=== PATIENT | female | born 1985 | race Caucasian/White ===

== ENCOUNTER 2019-04-30 11:12 | Inpatient (IN) | payer OTHER ==
[2019-04-30 12:23] LABS: RUPTURE FETAL MEMBRANES POSITIVE (NEGATIVE)
[2019-04-30] MEDS ORDERED: CARBOPROST 250 MCG INJ IM (14:30)
[2019-04-30] MEDS ORDERED: MISOPROSTOL 200 MCG TAB PR (14:30)
[2019-04-30] MEDS ORDERED: OXYTOCIN 30 UNITS/LR 500 ML IV (14:30)
[2019-04-30] MEDS ORDERED: BUTORPHANOL 2 MG INJ IV (14:30)
[2019-04-30] MEDS ORDERED: METHYLERGONOVINE 0.2 MG INJ IM (14:30)
[2019-04-30] MEDS ORDERED: LIDOCAINE 1% (MPF) 30 ML INJ INJ (14:30)
[2019-04-30] MEDS: LACTATED RINGER'S 1,000 ML IV ×2 (14:37→21:56)
[2019-04-30 14:46] LABS: ADD MAN DIFF? NO
[2019-04-30 14:49] LABS: WHITE BLOOD COUNT 9.1 10^3/ul (4.8-10.8)
[2019-04-30 14:49] LABS: BASOPHILS % 0.2 % (0.0-2.0); EOSINOPHILS # 0.1 10^3/ul (0.0-0.5); EOSINOPHILS % 0.7 % (0.0-7.0); HEMATOCRIT 35.9 % (37.0-47.0); HEMOGLOBIN 11.9 g/dl (12.0-16.0); LYMPHOCYTES # 1.6 10^3/ul (0.8-2.9); LYMPHOCYTES % 17.8 % (15.0-51.0); MEAN CORPUSCULAR HEMOGLOBIN 30.9 pg (29.0-33.0); MEAN CORPUSCULAR HGB CONC 33.1 g/dl (32.0-37.0); MEAN CORPUSCULAR VOLUME 93.2 fl (82.0-101.0); MEAN PLATELET VOLUME 10.4 fl (7.4-10.4); MONOCYTE # 0.7 10^3/ul (0.3-0.9); MONOCYTES % 7.4 % (0.0-11.0); NEUTROPHIL # 6.6 10^3/ul (1.6-7.5); NEUTROPHILS % 73.1 % (39.0-77.0); PLATELET COUNT 299 10^3/UL (140-415); RED BLOOD COUNT 3.85 10^6/ul (4.20-5.40); RED CELL DISTRIBUTION WIDTH 13.1 % (11.5-14.5)
[2019-04-30 15:10] LABS: INR 0.86; PROTIME 11.8 Sec (11.9-14.9); PT RATIO 0.9
[2019-04-30 15:11] LABS: PARTIAL THROMBOPLASTIN TIME 25.9 Sec (23.0-35.0)
[2019-04-30 15:49] LABS: HEPATITIS B SURFACE ANTIGEN NEGATIVE (NEGATIVE)
[2019-04-30] MEDS: AMPICILLIN 1 GM/NS (PMX) 50 ML IV ×2 (20:45→21:00)
[2019-04-30] MEDS: AMPICILLIN 2 GM/NS (PMX) 100 ML IV (20:45)
[2019-04-30] MEDS: OXYTOCIN 30 UNITS/LR 500 ML IV (22:23)
[2019-04-30] MEDS ORDERED: DIPHENHYDRAMINE 50 MG INJ IV (23:00)
[2019-04-30] MEDS ORDERED: NALOXONE (0.4 MG/ML) INJ IV (23:00)
[2019-04-30] MEDS ORDERED: FENTAnyl 2MCG/ML-ROPIV 0.2% 100 ML BAG EPI (23:00)
[2019-04-30] MEDS ORDERED: ONDANSETRON 4 MG INJ IV (23:00)
[2019-05-01] MEDS: AMPICILLIN 1 GM/NS (PMX) 50 ML IV ×2 (01:00→05:00)
[2019-05-01] MEDS: LACTATED RINGER'S 1,000 ML IV ×2 (01:08→14:14)
[2019-05-01] MEDS: AMPICILLIN 2 GM/NS (PMX) 100 ML IV (01:08)
[2019-05-01] MEDS: LACTATED RINGER'S 1,000 ML IV* ×2 (02:52→10:52)
[2019-05-01] MEDS ORDERED: ONDANSETRON 4 MG INJ IV (03:00)
[2019-05-01] MEDS ORDERED: ACETAMINOPHEN 325 MG TAB PO (03:00)
[2019-05-01] MEDS ORDERED: MISOPROSTOL 200 MCG TAB PR (03:00)
[2019-05-01] MEDS ORDERED: METHYLERGONOVINE 0.2 MG INJ IM (03:00)
[2019-05-01] MEDS ORDERED: OXYTOCIN 30 UNITS/LR 500 ML IV (03:00)
[2019-05-01] MEDS ORDERED: CARBOPROST 250 MCG INJ IM (03:00)
[2019-05-01] MEDS: CEFAZOLIN 2 GM/50 ML (PMX) 50 ML IVPB (03:17)
[2019-05-01] MEDS: OXYTOCIN 30 UNITS/LR 500 ML IV ×3 (03:22→08:00)
[2019-05-01] MEDS: IBUPROFEN 600 MG TAB PO ×3 (05:41→19:21)
[2019-05-01] MEDS: BENZOCAINE 20% 56 ML SPRAY TOP ×2 (05:41→22:58)
[2019-05-01] MEDS: LANOLIN HPA 1 PKT TOP ×2 (05:41→20:12)
[2019-05-01] MEDS: WITCH HAZEL/GLYCERIN PAD PR ×2 (05:41→22:58)
[2019-05-01] MEDS: ACETAMINOPHEN 325 MG TAB PO ×2 (09:00→20:12)
[2019-05-01 13:52] LABS: RAPID PLASMA REAGIN NONREACTIVE (NR)
[2019-05-01] MEDS: MAGNESIUM HYDROXIDE 30ML CUP PO (20:12)
[2019-05-01] MEDS: SENNA/DOCUSATE NA (8.6MG/50MG) TAB PO (20:12)
[2019-05-01] MEDS: HYDROCODONE/APAP (5/325) TAB PO (20:41)
[2019-05-01] MEDS: DIBUCAINE 1% 30 GM OINT TOP (22:58)
[2019-05-02] MEDS: HYDROCODONE/APAP (5/325) TAB PO ×3 (01:54→17:39)
[2019-05-02 06:35] LABS: ADD MAN DIFF? NO
[2019-05-02 06:44] LABS: BASOPHILS % 0.2 % (0.0-2.0); EOSINOPHILS # 0.3 10^3/ul (0.0-0.5); EOSINOPHILS % 2.4 % (0.0-7.0); HEMOGLOBIN 10.4 g/dl (12.0-16.0); LYMPHOCYTES # 2.6 10^3/ul (0.8-2.9); LYMPHOCYTES % 21.7 % (15.0-51.0); MEAN CORPUSCULAR HEMOGLOBIN 30.5 pg (29.0-33.0); MEAN CORPUSCULAR HGB CONC 32.5 g/dl (32.0-37.0); MEAN CORPUSCULAR VOLUME 93.8 fl (82.0-101.0); MEAN PLATELET VOLUME 10.3 fl (7.4-10.4); MONOCYTES % 8.2 % (0.0-11.0); NEUTROPHIL # 8.1 10^3/ul (1.6-7.5); NEUTROPHILS % 66.6 % (39.0-77.0); PLATELET COUNT 271 10^3/UL (140-415); RED BLOOD COUNT 3.41 10^6/ul (4.20-5.40); RED CELL DISTRIBUTION WIDTH 13.2 % (11.5-14.5)
[2019-05-02 06:44] LABS: WHITE BLOOD COUNT 12.1 10^3/ul (4.8-10.8)
[2019-05-02] MEDS: IBUPROFEN 600 MG TAB PO ×2 (13:35→23:55)
[2019-05-02] MEDS: WITCH HAZEL/GLYCERIN PAD PR (17:39)
[2019-05-02] MEDS: SENNA/DOCUSATE NA (8.6MG/50MG) TAB PO (21:22)
[2019-05-03] MEDS: MAGNESIUM HYDROXIDE 30ML CUP PO ×2 (00:06→08:39)
[2019-05-03] MEDS: LANOLIN HPA 1 PKT TOP ×2 (00:53→08:33)
[2019-05-03] MEDS: WITCH HAZEL/GLYCERIN PAD PR (08:33)
[2019-05-03] MEDS: BENZOCAINE 20% 56 ML SPRAY TOP (08:33)
[2019-05-03] MEDS: DIBUCAINE 1% 30 GM OINT TOP ×2 (08:33→14:11)
[2019-05-03] MEDS: SENNA/DOCUSATE NA (8.6MG/50MG) TAB PO (08:39)
[2019-05-03] MEDS: IBUPROFEN 600 MG TAB PO (08:39)
== END 2019-05-03 17:00 | disposition home or self-care (01) | DRG 807 ==
LOC: OBT 11:12 → PP1 05-01 04:58 → L-D 11:13 → OBT 13:40 → L-D 13:49
PROVIDERS: Obstetrics & Gynecology
PROC: 10E0XZZ Delivery of Products of Conception, External Approach (ICD-10-PCS; principal; 2019-05-01)
PROC: 0W8NXZZ Division of Female Perineum, External Approach (ICD-10-PCS; 2019-05-01)
PROC: 3E033VJ Introduction of Other Hormone into Peripheral Vein, Percutaneous Approach (ICD-10-PCS; 2019-05-01)
DX: O76 Abnormality in fetal heart rate and rhythm complicating labor and delivery (principal); Z37.0 Single live birth; Z3A.39 39 weeks gestation of pregnancy
CPT/HCPCS: 62322; 76815; 76818; 84112; 85025; 85610; 85730; 86592; 86850; 86900; 86901; 87340; 88307; 99464